=== PATIENT | male | born 1975 | race Hispanic/Latino ===

== ENCOUNTER 2016-07-15 20:23 | Emergency (ER) | payer OTHER ==
[2016-07-15 20:30] VITALS: BP 144/82; PULSE 89; RESP 17; TEMP 99; O2SAT 98
[2016-07-15] MEDS ORDERED: TDAP Vaccine 0.5 mL Syr IM ONE (20:56)
--- NOTE | 2016-07-15 20:57 | ED PDOC ---
Arrival/HPI - General Chief Complaint: Abnormal Skin Integrity Time Seen by Provider: 07/15/16 20:53 Historian: Patient - History of Present Illness Narrative History of Present Illness (Text): 07/15/16 20:54 40yo male with no PMHx present with left 3rd finger laceration. States he accidentally cut his finger with a saw while working, at 1100AM today. States he didn't want to come to the ED, but his family convinced him to come. He is not up to date with his TD booster. denies any other complaint. Past Medical History - Provider Review Nursing Documentation Reviewed: Yes - Psychiatric Hx Psychophysiologic Disorder: No Hx Substance Use: No Family/Social History - Physician Review Nursing Documentation Reviewed: Yes Family/Social History: Unknown Family HX Smoking Status: Light Smoker < 10 Cigarettes Daily Hx Alcohol Use: Yes Frequency of alcohol use: Socially Hx Substance Use: No Allergies/Home Meds Allergies/Adverse Reactions: Allergies No Known Allergies Allergy (Verified 07/15/16 20:27) Review of Systems - Physician Review All systems were reviewed & negative as marked: Yes - Review of Systems Constitutional: Normal Eyes: Normal ENT: Normal Respiratory: Normal Cardiovascular: Normal Gastrointestinal: Normal Genitourinary Male: Normal Musculoskeletal: Normal Skin: Laceration (Left 3rd finger) Neurological: Normal Endocrine: Normal Hemo/Lymphatic: Normal Psychiatric: Normal Physical Exam Vital Signs Reviewed: Yes Vital Signs Temp Pulse Resp BP Pulse Ox 07/15/16 20:27 99.0 F 89 17 144/82 98 Temperature: Afebrile Blood Pressure: Normal Pulse: Regular Respiratory Rate: Normal Appearance: Positive for: Well-Appearing, Non-Toxic, Comfortable Pain Distress: None Mental Status: Positive for: Alert and Oriented X 3 - Systems Exam Head: Present: Atraumatic, Normocephalic Pupils: Present: PERRL Extroacular Muscles: Present: EOMI Conjunctiva: Present: Normal Mouth: Present: Moist Mucous Membranes Neck: Present: Normal Range of Motion Respiratory/Chest: Present: Clear to Auscultation, Good Air Exchange. No: Respiratory Distress, Accessory Muscle Use Cardiovascular: Present: Regular Rate and Rhythm, Normal S1, S2. No: Murmurs Abdomen: Present: Normal Bowel Sounds. No: Tenderness, Distention, Peritoneal Signs Back: Present: Normal Inspection Upper Extremity: Present: Normal Inspection. No: Cyanosis, Edema Lower Extremity: Present: Normal Inspection. No: Edema Neurological: Present: GCS=15, CN II-XII Intact, Speech Normal Skin: Present: Warm, Dry, Normal Color, Laceration (2.0cm linear laceration on distal volar aspect of left 4th finger). No: Rashes Psychiatric: Present: Alert, Oriented x 3, Normal Insight, Normal Concentration Medical Decision Making - Medication Orders Current Medication Orders: Discontinued Medications Acetaminophen (Tylenol 325mg Tab) 650 mg PO STAT STA Stop: 07/15/16 20:57 Last Admin: 07/15/16 21:08 Dose: 650 mg Cephalexin Monohydrate (Keflex) 500 mg PO STAT STA PRN Reason: Protocol Stop: 07/15/16 20:57 Last Admin: 07/15/16 21:08 Dose: 500 mg Tetanus/Reduced Diphtheria/Acell Pertussis (Boostrix Vaccine Inj) 0.5 ml IM .ONCE ONE Stop: 07/15/16 20:57 Last Admin: 07/15/16 21:07 Dose: 0.5 ml Procedure: Wound Repair - Consent Obtained Consent obtained: Verbal - Performed by Performed by: Mid-level Provider - Indications Indication(s):: Laceration - Location Finger:: Left, Ring Shape:: Linear Dimensions Length cm: 2.0 - Anesthetic Technique Anesthetic Technique: Local - Debris Debris:: None - Irrigated Irrigated with ml of normal saline: 70 - Complexity Complexity:: Intermediate (2 layer) - Muscle repiar layer closed with Muscle repair layer closed with:: # (8), Size (5), Type (proline), Technique ( interrupted), Wound well approximated, Abx ointment applied, Dressing applied, Tetanus ordered Disposition/Present on Arrival - Present on Arrival Any Indicators Present on Arrival: No History of DVT/PE: No History of Uncontrolled Diabetes: No Urinary Catheter: No History of Decub. Ulcer: No History Surgical Site Infection Following: None - Disposition Have Diagnosis and Disposition been Completed?: Yes Diagnosis: Finger laceration Disposition: HOME/ ROUTINE Disposition Time: 21:45 Patient Plan: Discharge Patient Problems: Current Active Problems Problem Status Onset Finger laceration Acute Condition: STABLE Discharge Instructions (ExitCare): Finger Laceration (ED) Additional Instructions: Keep wound clean and dry follow up with your Doctor in 10days for suture removal Return to ED for any new or worsening symptoms Prescriptions: Cephalexin [Keflex] 500 mg PO TID #21 capsule Referrals: Vee Tomas, [Primary Care Provider] - Follow up with primary [facility] [place] - Follow up with primary
== END 2016-07-15 21:51 | disposition home or self-care (01) ==
LOC: ED 20:23
DX: S61.213A Laceration without foreign body of left middle finger without damage to nail, initial encounter (principal); W45.8XXA Other foreign body or object entering through skin, initial encounter; F17.210 Nicotine dependence, cigarettes, uncomplicated; Z23 Encounter for immunization

== ENCOUNTER 2016-07-24 13:57 | Emergency (ER) | payer OTHER ==
[2016-07-24 14:24] VITALS: BP 152/83; PULSE 79; RESP 16; TEMP 98; O2SAT 97; BMI 26.6
--- NOTE | 2016-07-24 15:15 | ED PDOC ---
Arrival/HPI - General Historian: Patient - General Chief Complaint: Suture/Staple Removal Time Seen by Provider: 07/24/16 14:20 - History of Present Illness Narrative History of Present Illness (Text): 07/24/16 15:20 40-year-old male presents today for suture removal to the left third finger. Patient states 10 days ago he sustained a laceration to the finger and had sutures placed. He denies pain. Denies numbness weakness or tingling. Denies decreased range of motion of the finger. No medications taken for pain at home. No other complaints. (Cheyanne Campbell) Past Medical History - Provider Review Nursing Documentation Reviewed: Yes - Travel History Have you recently traveled outside [place] w/in the past 3 mons?: No - Tetanus Immunization Tetanus Immunization: Up to Date - Psychiatric Hx Psychophysiologic Disorder: No Hx Substance Use: No Family/Social History - Physician Review Nursing Documentation Reviewed: Yes Family/Social History: Unknown Family HX Smoking Status: Light Smoker < 10 Cigarettes Daily Hx Alcohol Use: Yes Hx Substance Use: No Allergies/Home Meds Allergies/Adverse Reactions: Allergies No Known Allergies Allergy (Verified 07/15/16 20:27) Review of Systems - Review of Systems Constitutional: absent: Fatigue, Fevers Respiratory: absent: SOB, Cough Cardiovascular: absent: Chest Pain, Palpitations Gastrointestinal: absent: Abdominal Pain, Diarrhea, Nausea, Vomiting Genitourinary Male: absent: Dysuria Musculoskeletal: absent: Arthralgias Skin: Laceration Neurological: absent: Headache Physical Exam Vital Signs Reviewed: Yes Temperature: Afebrile Blood Pressure: Normal Pulse: Regular Respiratory Rate: Normal Appearance: Positive for: Well-Appearing, Non-Toxic, Comfortable Pain Distress: None Mental Status: Positive for: Alert and Oriented X 3 - Systems Exam Head: Present: Atraumatic Respiratory/Chest: Present: Clear to Auscultation Cardiovascular: Present: Regular Rate and Rhythm Upper Extremity: Present: Normal ROM, NORMAL PULSES, Neurovascularly Intact, Capillary Refill < 2s, Other (Left third finger: There are [address] along the dorsal aspect of the finger fully range of motion of the finger. No erythema no edema and no ecchymosis). No: Tenderness, Swelling, Erythema, Deformity Neurological: Present: GCS=15 Skin: Present: Warm, Dry Psychiatric: Present: Alert, Oriented x 3 Vital Signs Temp Pulse Resp BP Pulse Ox 07/24/16 14:22 98.0 F 79 16 152/83 H 97 Medical Decision Making ED Course and Treatment: I was available for consultation during PA evaluation. The chart was reviewed by me, and I agree with disposition. The documented history was done by the physician hotel sales manager. The documented physical exam was done by the physician hotel sales manager. The documented procedures were done by the physician hotel sales manager. ( Abrahan Godoy) 07/24/16 15:21 Patient is nontoxic well-appearing in no distress. Vital signs are stable. Suture removal: 8 sutures removed Wound healing well without signs of infection I advised the patient to keep the wound clean and dry apply bacitracin twice daily and return if symptoms worsen persist or if new symptoms develop Impression: Wound check, suture removal Keep the wound clean and dry Apply bacitracin twice daily Follow up with primary care physician within the next 2 days Return immediately if symptoms worsen persist or if new symptoms develop (Cheyanne Campbell) Disposition/Present on Arrival - Present on Arrival Any Indicators Present on Arrival: No History of DVT/PE: No History of Uncontrolled Diabetes: No Urinary Catheter: No History of Decub. Ulcer: No History Surgical Site Infection Following: None - Disposition Have Diagnosis and Disposition been Completed?: Yes Disposition Time: 15:00 Patient Plan: Discharge - Disposition Diagnosis: Encounter for removal of sutures Disposition: HOME/ ROUTINE Patient Problems: Current Active Problems Problem Status Onset Encounter for removal of sutures Acute Condition: GOOD Discharge Instructions (ExitCare): Laceration (ED) Print Language: INDONESIAN Additional Instructions: Keep the wound clean and dry Apply bacitracin twice daily Follow up with primary care physician within the next 2 days Return immediately if symptoms worsen persist or if new symptoms develop Referrals: Artur Rm MD [Staff Provider] - Follow up with primary [facility] [place] [Outside] - Follow up with primary
== END 2016-07-24 15:24 | disposition home or self-care (01) ==
LOC: ED 13:57
DX: Z48.02 Encounter for removal of sutures (principal)